=== PATIENT | male | born 1935 | race Caucasian/White ===

== ENCOUNTER 2019-03-11 18:29 | Inpatient (IN) | payer MEDICARE, OTHER ==
[~2019-03-11] VITALS: Ht 175.3 cm; Wt 105.5 kg
[~2019-03-11 18:29] MED LIST: ASPI81TA30 PO; ATOR40TA7 PO; CALC0.253 PO; CALC600T19 PO; CEPH-571 PO; FLUR2.5D3 LEFTEYE; LEVO175T7 PO; LISI40TA4 PO; OFLO5DRO3 LEFTEYE; OMEG1CAP21 PO; PIOG15TA8 PO; PRED5DRO7 LEFTEYE; VARD5TAB5 PO
[2019-03-11 20:21] LABS: BASOPHILS % (AUTO) 0.2 % (0-1); EOSINOPHILS % (AUTO) 0 % (0-6); HEMATOCRIT 33.2 % (42.0-52.0); HEMOGLOBIN 11.2 g/dl (14.0-17.9); LYMPHOCYTES # (AUTO) 13.6 X10'3 (1.1-4.8); MEAN CORPUSCULAR HEMOGLOBIN 32.7 PG (27.0-31.0); MEAN CORPUSCULAR HGB CONC 33.7 g/dL (33.0-36.5); MEAN CORPUSCULAR VOLUME 97.2 FL (78-98); MEAN PLATELET VOLUME 6.7 FL (7.4-10.4); MONOCYTES # (AUTO) 0.4 X10'3 (0-0.9); MONOCYTES % (AUTO) 1.8 % (2-12); NEUTROPHILS # (AUTO) 6.9 X10'3 (1.8-7.7); PLATELET COUNT 229 X10'3 (140-440); RED BLOOD COUNT 3.41 X10'6 (4.70-6.10); WHITE BLOOD COUNT 20.9 X10'3 (4.5-11.0)
[2019-03-11 20:31] LABS: ALANINE AMINOTRANSFERASE 33 U/L (12-78); ALBUMIN 2.5 G/DL (3.4-5.0); ALBUMIN/GLOBULIN RATIO 0.6 (1.1-1.5); ALKALINE PHOSPHATASE 71 IU/L (46-116); ANION GAP 7 (8-16); ASPARTATE AMINO TRANSFERASE 27 U/L (10-37); BILIRUBIN,TOTAL 1.2 MG/DL (0.1-1.0); BLOOD UREA NITROGEN 21 MG/DL (7-18); BUN/CREATININE RATIO 14.9 (5.4-32.0); CALCIUM 6.5 MG/DL (8.5-10.1); CHLORIDE 94 MMOL/L (99-107); CREATININE 1.41 MG/DL (0.60-1.10); GLUCOSE 206 MG/DL (70-104); POTASSIUM 3.2 MMOL/L (3.5-5.1); SODIUM 130 MMOL/L (135-145); TOTAL CARBON DIOXIDE 29.4 MMOL/L (24-32); eGFR 48 ML/MIN
[2019-03-11] MEDS ORDERED: normal saline 1000ML IV soln IV ONE (20:35)
[2019-03-11] MEDS ORDERED: azithromycin/NS 500mg/250ml 250 ML IV ONE (20:35)
[2019-03-11] MEDS ORDERED: CefTRIAXone 2gm/D5W 50ml 50 ML IV ONE (20:35)
[2019-03-11] MEDS ORDERED: ipratropium/albuterol 3ml nebule NEB ONE (20:35)
[2019-03-11 21:03] LABS: TOTAL CELLS COUNTED 100
[2019-03-11 21:04] LABS: PLATELET ESTIMATE NORMAL; SMUDGE CELLS FEW
--- NOTE | 2019-03-11 22:40 | NUR ---
UNABLE TO COMPLETE MED REC. PT DOES NOT RECALL HOME MEDS
[2019-03-11] MEDS ORDERED: potassium Cl 20 mEq SR tablet PO PRN (22:50)
[2019-03-11] MEDS ORDERED: dextrose 50%-water 50ml dispensing syringe IV PRN ×2 (22:50)
[2019-03-11] MEDS ORDERED: mag hydrox/Alum hydrox/simeth 30ml oral suspension PO PRN (22:50)
[2019-03-11] MEDS ORDERED: docusate sod 100mg capsule PO PRN (22:50)
[2019-03-11] MEDS ORDERED: ondansetron/PF 4mg/2ml inj IV PRN (22:50)
[2019-03-11] MEDS ORDERED: acetaminophen 325mg tablet PO PRN (22:50)
[2019-03-11] MEDS ORDERED: ipratropium/albuterol 3ml nebule NEB PRN (22:50)
[2019-03-11] MEDS ORDERED: potassium Cl 40MEQ/NS 500ml 500 ML IV PRN ×2 (22:50)
[2019-03-11] MEDS ORDERED: insulin Lispro (HumaLOG) vial - multi-dose SQ SCH (22:50)
[2019-03-11] MEDS ORDERED: glucagon, human recombinant 1mg kit SUBCUT PRN (22:50)
[2019-03-11] MEDS ORDERED: magnesium Cl slow-release 64mg tablet PO PRN (22:50)
[2019-03-11] MEDS ORDERED: MESSAGE TO PHARMACY PO ONE (22:50)
[2019-03-11] MEDS ORDERED: magnesium 4gm in 100ml NS 100 ML IV PRN (22:50)
[2019-03-11] MEDS ORDERED: magnesium 2GM in 50ml NS 50 ML IV PRN (22:50)
[2019-03-11] MEDS ORDERED: dextrose ORAL solution 15 GM/59 ML bottle PO PRN ×2 (22:50)
--- NOTE | 2019-03-11 23:33 | NUR ---
Patient in room [facility]. I have received report from Eliezer Bradley Rn and had the opportunity to ask questions and will assume patient care upon arrival to the floor. Addendum: 03/11/19 at 2335 by Crystal Reed RN Amended: Links added.
[2019-03-12 00:10] VITALS: BP 130/66
--- NOTE | 2019-03-12 00:42 | NUR ---
pt inc of urine skin care done and picture of calf to left leg. noted bilat edema to legs +1 and scrotal edema. bilat cellulitis to the legs left worse than right and wound to back of left leg calf. scabs to both ears dry and thick cream to ears outer lobes and legs bilat. after picture taken of back of left calf Optifoam applied and cream to legs bilat. right hand 4th finger knuckle with dry scab next to pinky finger.
--- NOTE | 2019-03-12 01:37 | NUR ---
up to edge of bed to void. tolerated well c/o being cold warm blanket given and thermostat up from 65 to 72.
--- NOTE | 2019-03-12 02:48 | NUR ---
pt requested sleeping pill one not ordered and after 1am so unable to give if had it. then pt c/o pain with coughing to his side and medicated with tylenol for this.
--- NOTE | 2019-03-12 03:30 | NUR ---
reviewed med rec with pt and talked to Dr Ramsay regarding him. his meds and what he wanted for pain and sleeper. no sleeper ordered.
--- NOTE | 2019-03-12 05:24 | NUR ---
resting on his side no s&S of distress at this time.
[2019-03-12 05:33] LABS: BASOPHILS % (AUTO) 0.2 % (0-1); EOSINOPHILS % (AUTO) 0.1 % (0-6); MEAN CORPUSCULAR HEMOGLOBIN 32.9 PG (27.0-31.0); MEAN PLATELET VOLUME 6.7 FL (7.4-10.4)
[2019-03-12 05:34] LABS: HEMATOCRIT 33.2 % (42.0-52.0); HEMOGLOBIN 11.2 g/dl (14.0-17.9); LYMPHOCYTES # (AUTO) 14.3 X10'3 (1.1-4.8); LYMPHOCYTES % (AUTO) 62.9 % (21-51); MEAN CORPUSCULAR HGB CONC 33.6 g/dL (33.0-36.5); MEAN CORPUSCULAR VOLUME 97.8 FL (78-98); MONOCYTES # (AUTO) 0.4 X10'3 (0-0.9); MONOCYTES % (AUTO) 1.6 % (2-12); NEUTROPHILS % (AUTO) 35.2 % (42-75); PLATELET COUNT 230 X10'3 (140-440); RED CELL DISTRIBUTION WIDTH 16.3 % (11.5-14.5); WHITE BLOOD COUNT 22.7 X10'3 (4.5-11.0)
[2019-03-12 05:36] LABS: ALANINE AMINOTRANSFERASE 25 U/L (12-78); ALBUMIN 2.1 G/DL (3.4-5.0); ALBUMIN/GLOBULIN RATIO 0.5 (1.1-1.5); ALKALINE PHOSPHATASE 108 IU/L (46-116); ANION GAP 8 (8-16); ASPARTATE AMINO TRANSFERASE 21 U/L (10-37); BILIRUBIN,TOTAL 0.7 MG/DL (0.1-1.0); BLOOD UREA NITROGEN 19 MG/DL (7-18); BUN/CREATININE RATIO 14.5 (5.4-32.0); CALCIUM 6.3 MG/DL (8.5-10.1); CHLORIDE 99 MMOL/L (99-107); CREATININE 1.31 MG/DL (0.60-1.10); GLUCOSE 155 MG/DL (70-104); SODIUM 134 MMOL/L (135-145); TOTAL CARBON DIOXIDE 27.1 MMOL/L (24-32); TOTAL PROTEIN 6.1 G/DL (6.4-8.2); eGFR 52 ML/MIN
[2019-03-12 05:40] LABS: MAGNESIUM 1.9 MG/DL (1.5-2.4)
--- NOTE | 2019-03-12 05:47 | NUR ---
received critical lab k3.[address] Ramsay with results.
[2019-03-12 06:18] LABS: PLATELET ESTIMATE NORMAL; TOTAL CELLS COUNTED 100
[2019-03-12 06:19] LABS: ANISOCYTOSIS 1+; SMUDGE CELLS FEW
--- NOTE | 2019-03-12 06:23 | NUR ---
Dr Ramsay paged x2 regarding critical K results. no call back and no orders inputted. will pass this on to Kiarra allen Rn in report.
--- NOTE | 2019-03-12 06:37 | NUR ---
Problems reprioritized. Patient report given, questions answered & plan of care reviewed with Kiarra Romero. Addendum: 03/12/19 at 0638 by Crystal Reed RN Amended: Links added.
[2019-03-12] MEDS: K and/or MAG REPLACEMENT MC SCH (06:45)
--- NOTE | 2019-03-12 06:48 | NUR ---
Dr. Ramsay aware of K of 3.0. Replacement protocol ordered.
[2019-03-12] MEDS ORDERED: magnesium 4gm in 100ml NS 100 ML IV PRN (06:50)
[2019-03-12] MEDS ORDERED: magnesium 2GM in 50ml NS 50 ML IV PRN (06:50)
[2019-03-12] MEDS ORDERED: magnesium Cl slow-release 64mg tablet PO PRN (06:50)
[2019-03-12] MEDS ORDERED: potassium Cl 40MEQ/NS 500ml 500 ML IV PRN ×2 (06:50)
[2019-03-12] MEDS ORDERED: potassium Cl 20 mEq SR tablet PO PRN ×2 (06:50)
[2019-03-12] MEDS: calcitriol 0.25mcg capsule PO SCH (07:19)
[2019-03-12] MEDS: calcium carbonate 500mg tablet PO SCH ×2 (07:20→20:19)
[2019-03-12] MEDS: atorvastatin 20mg tablet PO SCH (07:22)
[2019-03-12] MEDS: levoTHYROXINE 175mcg tablet PO SCH (07:22)
[2019-03-12] MEDS: aspirin 81mg tablet.DR PO SCH (07:22)
[2019-03-12] MEDS: enoxaparin 40mg/0.4ml syringe SQ SCH (07:23)
[2019-03-12] MEDS: OMEGA-3/DHA/EPA/FISH OIL 1 EACH CAPSULE.DR PO SCH ×2 (07:26→20:19)
[2019-03-12] MEDS ORDERED: lisinopril 20mg tablet PO SCH (08:00)
[2019-03-12] MEDS ORDERED: CefTRIAXone/D5W-Rocephin 1gm 50 ML IV SCH (08:00)
[2019-03-12 09:38] VITALS: BP 102/48
[2019-03-12 11:00] VITALS: BP 99/60
[2019-03-12] MEDS: potassium Cl 20 mEq SR tablet PO PRN ×3 (12:23→21:12)
--- NOTE | 2019-03-12 16:05 | NUR ---
DM Consult:A1C 7.4. Pt admit w/ sepsis secondary to PNA w/ RLL cellulitis. Hx thyroid CA and thyroidectomy, T2DM. Pt PO pending advanced to carb controlled diet. Pt seen by RD for written/verbal high protein/DM eds w/ RD contact information provided. Pt attends [employer] classes. Pt agrees to strawberry [place] yogurt TIDWM; RD d/w dietary. LBM 5/4 w/ initial nausea on admit resolving. Receiving electrolyte replacements per protocol. Will continue to monitor. Rec: 1. continue carb controlled diet 2. strawberry [place] yogurt TIDWM 3. monitor for ONS needs pending PO 4. wt per rx Addendum: 03/12/19 at [address] Amended: Links added.
--- NOTE | 2019-03-12 18:11 | NUR ---
Problems reprioritized. Patient report given, questions answered & plan of care reviewed with Vladimir GUERRA.
[2019-03-12 18:50] VITALS: BP 130/70
[2019-03-12] MEDS: ipratropium/albuterol 3ml nebule NEB SCH ×2 (19:29→23:20)
[2019-03-12] MEDS: lactobacillus rhamnosus 10,000 MMU CELLS/CAPSULE PO SCH (20:19)
[2019-03-12] MEDS: insulin glargine (Lantus) pen - multi-dose SQ SCH (21:00)
[2019-03-12] MEDS: azithromycin/NS 500mg/250ml 250 ML IV SCH (21:10)
[2019-03-13] VITALS: BP 131/76
[2019-03-13] MEDS: ipratropium/albuterol 3ml nebule NEB SCH ×6 (03:20→23:13)
[2019-03-13 05:17] LABS: EOSINOPHILS # (AUTO) 0.3 X10'3 (0-0.9); HEMOGLOBIN 10.4 g/dl (14.0-17.9); MEAN CORPUSCULAR VOLUME 98.5 FL (78-98); MONOCYTES # (AUTO) 0.2 X10'3 (0-0.9); WHITE BLOOD COUNT 20.8 X10'3 (4.5-11.0)
[2019-03-13 05:19] LABS: BASOPHILS % (AUTO) 0.2 % (0-1); EOSINOPHILS % (AUTO) 1.3 % (0-6); HEMATOCRIT 31.4 % (42.0-52.0); LYMPHOCYTES # (AUTO) 14.7 X10'3 (1.1-4.8); LYMPHOCYTES % (AUTO) 71.1 % (21-51); MEAN CORPUSCULAR HEMOGLOBIN 32.8 PG (27.0-31.0); MEAN CORPUSCULAR HGB CONC 33.3 g/dL (33.0-36.5); MEAN PLATELET VOLUME 6.8 FL (7.4-10.4); MONOCYTES % (AUTO) 1.1 % (2-12); NEUTROPHILS # (AUTO) 5.5 X10'3 (1.8-7.7); NEUTROPHILS % (AUTO) 26.3 % (42-75); PLATELET COUNT 246 X10'3 (140-440); RED BLOOD COUNT 3.18 X10'6 (4.70-6.10); RED CELL DISTRIBUTION WIDTH 16.7 % (11.5-14.5)
[2019-03-13 05:45] LABS: ALBUMIN 2.2 G/DL (3.4-5.0); ANION GAP 7 (8-16); BLOOD UREA NITROGEN 24 MG/DL (7-18); BUN/CREATININE RATIO 17.1 (5.4-32.0); CALCIUM 6.5 MG/DL (8.5-10.1); CHLORIDE 100 MMOL/L (99-107); GLUCOSE 98 MG/DL (70-104); MAGNESIUM 2.1 MG/DL (1.5-2.4); POTASSIUM 4.1 MMOL/L (3.5-5.1); SODIUM 135 MMOL/L (135-145); eGFR 49 ML/MIN
--- NOTE | 2019-03-13 06:12 | NUR ---
I have received report from Vladimir GUERRA and had the opportunity to ask questions and assume patient care.
--- NOTE | 2019-03-13 06:37 | NUR ---
Problems reprioritized. Patient report given, questions answered & plan of care reviewed with TYRELL. Addendum: 03/13/19 at 0638 by Venancio Alcaraz RN Amended: Links added.
[2019-03-13 07:11] LABS: TOTAL CELLS COUNTED 100
[2019-03-13 07:12] LABS: ANISOCYTOSIS 1+; PLATELET ESTIMATE NORMAL; SMUDGE CELLS 2+
[2019-03-13 07:30] VITALS: BP 132/68
[2019-03-13] MEDS: K and/or MAG REPLACEMENT MC SCH (08:00)
[2019-03-13] MEDS: atorvastatin 20mg tablet PO SCH (08:07)
[2019-03-13] MEDS: calcitriol 0.25mcg capsule PO SCH (08:07)
[2019-03-13] MEDS: CefTRIAXone 2gm/D5W 50ml 50 ML IV SCH (08:07)
[2019-03-13] MEDS: lactobacillus rhamnosus 10,000 MMU CELLS/CAPSULE PO SCH ×2 (08:08→20:02)
[2019-03-13] MEDS: levoTHYROXINE 175mcg tablet PO SCH (08:08)
[2019-03-13] MEDS: OMEGA-3/DHA/EPA/FISH OIL 1 EACH CAPSULE.DR PO SCH ×2 (08:08→20:02)
[2019-03-13] MEDS: enoxaparin 40mg/0.4ml syringe SQ SCH (08:08)
[2019-03-13] MEDS: calcium carbonate 500mg tablet PO SCH ×2 (08:08→20:02)
[2019-03-13] MEDS: aspirin 81mg tablet.DR PO SCH (08:08)
[2019-03-13 11:00] VITALS: BP 133/82
--- NOTE | 2019-03-13 11:50 | NUR ---
O2 Sat at rest on room air:__92_% If below 89%: Recovery O2 Sat at rest on ___LPM:___%:___% via (mask/nasal cannula, etc..) No further documentation is necessary. If O2 Sat did not drop below 89% on room air,ambulate patient on room air. O2 Sat while ambulating on room air:___% Recovery O2 Sat while ambulating on ___LPM:___% No further documentation is necessary. If patient does not drop below 89% while ambulating, he/she does not qualify for home O2.
[2019-03-13] MEDS: furosemide 20 MG/2 ML vial IV SCH ×2 (14:28→20:02)
--- NOTE | 2019-03-13 16:05 | NUR ---
Student documentation: I have reviewed and agree with all interventions, assessments performed and documented by Roma WANG from [facility]. Student Medication Administration: For medication-pass' this shift, all medication were reviewed, dispensed, administered and documented per hospital policy by Roma WANG from [facility].
--- NOTE | 2019-03-13 18:23 | NUR ---
Problems reprioritized. Patient report given, questions answered & plan of care reviewed with Latanya GUERRA.
[2019-03-13 20:00] VITALS: BP 142/82
[2019-03-13] MEDS: azithromycin/NS 500mg/250ml 250 ML IV SCH (20:02)
[2019-03-13] MEDS: insulin glargine (Lantus) pen - multi-dose SQ SCH (21:00)
--- NOTE | 2019-03-13 21:18 | NUR ---
Patient in room [facility]. I have received report from AMRI Plunkett and had the opportunity to ask questions and assume patient care. Addendum: 03/13/19 at 2120 by Latanya Singh RN Amended: Links added.
[2019-03-14 00:11] VITALS: BP 142/76
[2019-03-14] MEDS: HYDROcodone/acetaminophen 5mg/325mg tablet PO PRN ×2 (02:06→09:58)
[2019-03-14] MEDS: ipratropium/albuterol 3ml nebule NEB SCH ×3 (03:24→10:58)
[2019-03-14 05:17] LABS: EOSINOPHILS # (AUTO) 0.3 X10'3 (0-0.9); EOSINOPHILS % (AUTO) 1.6 % (0-6); HEMOGLOBIN 11.1 g/dl (14.0-17.9); MONOCYTES # (AUTO) 0.2 X10'3 (0-0.9)
[2019-03-14 05:20] LABS: BASOPHILS % (AUTO) 0.2 % (0-1); HEMATOCRIT 32.3 % (42.0-52.0); LYMPHOCYTES # (AUTO) 12.5 X10'3 (1.1-4.8); LYMPHOCYTES % (AUTO) 73.4 % (21-51); MEAN CORPUSCULAR HEMOGLOBIN 33.6 PG (27.0-31.0); MEAN CORPUSCULAR HGB CONC 34.3 g/dL (33.0-36.5); MEAN CORPUSCULAR VOLUME 97.9 FL (78-98); MEAN PLATELET VOLUME 6.9 FL (7.4-10.4); MONOCYTES % (AUTO) 0.9 % (2-12); NEUTROPHILS # (AUTO) 4.1 X10'3 (1.8-7.7); NEUTROPHILS % (AUTO) 23.9 % (42-75); PLATELET COUNT 310 X10'3 (140-440); RED BLOOD COUNT 3.29 X10'6 (4.70-6.10); RED CELL DISTRIBUTION WIDTH 16.4 % (11.5-14.5)
[2019-03-14 05:22] LABS: ALBUMIN 2.4 G/DL (3.4-5.0); ANION GAP 9 (8-16); BLOOD UREA NITROGEN 32 MG/DL (7-18); BUN/CREATININE RATIO 21.1 (5.4-32.0); CALCIUM 6.7 MG/DL (8.5-10.1); CHLORIDE 99 MMOL/L (99-107); CREATININE 1.52 MG/DL (0.60-1.10); GLUCOSE 143 MG/DL (70-104); MAGNESIUM 1.8 MG/DL (1.5-2.4); POTASSIUM 3.4 MMOL/L (3.5-5.1); SODIUM 137 MMOL/L (135-145); TOTAL CARBON DIOXIDE 29.3 MMOL/L (24-32); eGFR 44 ML/MIN
--- NOTE | 2019-03-14 06:00 | NUR ---
Patient in room [facility]. I have received report from Latanya GUERRA and had the opportunity to ask questions and assume patient care.
--- NOTE | 2019-03-14 06:07 | NUR ---
Problems reprioritized. Patient report given, questions answered & plan of care reviewed with MARI Plunkett. Addendum: 03/14/19 at 0607 by Latanya Singh RN Amended: Links added.
[2019-03-14] MEDS: furosemide 20 MG/2 ML vial IV SCH (07:47)
[2019-03-14] MEDS: atorvastatin 20mg tablet PO SCH (07:47)
[2019-03-14] MEDS: CefTRIAXone 2gm/D5W 50ml 50 ML IV SCH (07:47)
[2019-03-14] MEDS: lactobacillus rhamnosus 10,000 MMU CELLS/CAPSULE PO SCH (07:48)
[2019-03-14] MEDS: levoTHYROXINE 175mcg tablet PO SCH (07:48)
[2019-03-14] MEDS: aspirin 81mg tablet.DR PO SCH (07:48)
[2019-03-14] MEDS: calcium carbonate 500mg tablet PO SCH (07:48)
[2019-03-14] MEDS: calcitriol 0.25mcg capsule PO SCH (07:52)
[2019-03-14] MEDS: enoxaparin 40mg/0.4ml syringe SQ SCH (07:52)
[2019-03-14] MEDS: OMEGA-3/DHA/EPA/FISH OIL 1 EACH CAPSULE.DR PO SCH (07:52)
[2019-03-14 07:54] LABS: ANISOCYTOSIS 1+; PLATELET ESTIMATE NORMAL; SMUDGE CELLS 2+; TOTAL CELLS COUNTED 100
[2019-03-14 08:00] VITALS: BP 162/90
[2019-03-14] MEDS: K and/or MAG REPLACEMENT MC SCH (08:00)
[2019-03-14] MEDS: potassium Cl 20 mEq SR tablet PO PRN (09:57)
--- NOTE | 2019-03-14 11:20 | NUR ---
Paged Dr. Valdovinos concerning patient wanting to leave, get his money [place] and wallet, out of the safe. He is obsessed about his personal items in the safe, thinks they are going to get stolen. Security has informed him that they are safe and under lock and rothman. Dr. Valdovinos will come see patient as soon as he is available. Patient has been educated that if he leaves AMA he will most likely be responsible for the bill, patient states that he will wait for the MD to see him. Advised patient that he can not cuss at the staff and threaten any of them. He states that he is sorry and that he will be good. Patient is in the room sitting in the chair drinking coffee.
--- NOTE | 2019-03-14 11:57 | NUR ---
in to see patient.
[2019-03-14 12:30] VITALS: BP 173/98
--- NOTE | 2019-03-14 12:33 | NUR ---
Discharge order place, MD working on dictation and wanting results for echo on patient before discharging. [facility] bedside waiting for MD to put in medications to go home with. MD has not completed discharge of of yet. Will continue to watch for completion of discharge.
--- NOTE | 2019-03-14 12:58 | NUR ---
Confirmed with Dr. Valdovinos that he is still working on patients discharge currently, stated "Yes".
[2019-03-14] MEDS ORDERED: FURO-150 PO (13:07)
[2019-03-14] MEDS ORDERED: CEFD300C3 PO (13:07)
--- NOTE | 2019-03-14 14:29 | NUR ---
Patient discharged on nursing end. Patient waiting for son to pick him up in 20 minutes. Medications called into pharmacy. All medication education completed with patient. Patient states that he knows all the information he needs to know about DM. Patient attends meeting at [facility] for his DM. Patient states, "If I dont take care of these feet I will lose them." Patient is dressed and sitting in chair ready to discharge. IV dc'd.
--- NOTE | 2019-03-14 14:45 | NUR ---
Patient left after being told to wait in his room for his son, without a wheel chair ride. Patient left belongings bag, took discharge paper work.
[2019-03-15] MEDS ORDERED: POTA20TA19 PO (14:56)
[2019-03-15] MEDS ORDERED: SYN0.088T PO (14:57)
[2019-03-15] MEDS ORDERED: LEVO100T PO (14:59)
== END 2019-03-14 14:53 | disposition home or self-care (01) | DRG 871 ==
LOC: ER 18:31 → SUR 3N 22:48 → CMPBEDREQ 23:40
PROVIDERS: ADMIT Family Medicine; ATTEND Hospitalist
DX: A41.9 Sepsis, unspecified organism (principal); J18.9 Pneumonia, unspecified organism; N17.9 Acute kidney failure, unspecified; L03.116 Cellulitis of left lower limb; I10 Essential (primary) hypertension; E78.00 Pure hypercholesterolemia, unspecified; E11.649 Type 2 diabetes mellitus with hypoglycemia without coma; E89.0 Postprocedural hypothyroidism; G47.00 Insomnia, unspecified; Z85.850 Personal history of malignant neoplasm of thyroid
CPT/HCPCS: 36415; 71045; 80048; 80053; 82948; 83036; 83605; 83735; 83880; 84145; 84484; 85025; 87040; 87070; 87502; 87503; 93005; 93306; 93970; 94640; 94760; 96365; 96368; 99285; G0378; J0456; J0696; J1650; J1815; J1940

== ENCOUNTER 2019-06-30 15:44 | Emergency (ER) | payer MEDICARE, OTHER ==
[~2019-06-30] VITALS: Ht 175.3 cm; Wt 118.9 kg
[~2019-06-30 15:44] MED LIST changes: -CEPH-571 PO; -FLUR2.5D3 LEFTEYE; +FURO-150 PO; +LEVO100T PO; -LEVO175T7 PO; -LISI40TA4 PO; -OFLO5DRO3 LEFTEYE; +POTA20TA19 PO; -PRED5DRO7 LEFTEYE
[2019-06-30 17:34] VITALS: BP 127/68
[2019-06-30 18:07] LABS: CLARITY,URINE CLEAR (Clear); COLOR,URINE YELLOW (Yellow); GLUCOSE, URINE NEGATIVE (Neg); KETONES,URINE NEGATIVE (Neg); LEUKOCYTE ESTERASE ,URINE NEGATIVE (Neg); NITRITES, URINE NEGATIVE (Neg); OCCULT BLOOD,URINE SMALL (Neg); PROTEIN,URINE NEGATIVE (Neg); UROBILINOGEN,URINE 0.2 E.U/dL (0.2-1.0)
[2019-06-30 18:08] LABS: UA COLLECTION TYPE VOIDED
[2019-06-30 18:10] LABS: HEMOGLOBIN 10.9 g/dl (14.0-17.9); MEAN PLATELET VOLUME 6.5 FL (7.4-10.4)
[2019-06-30 18:12] LABS: BASOPHILS % (AUTO) 0.2 % (0-1); EOSINOPHILS # (AUTO) 0.3 X10'3 (0-0.9); EOSINOPHILS % (AUTO) 1.9 % (0-6); HEMATOCRIT 31.6 % (42.0-52.0); LYMPHOCYTES # (AUTO) 11.6 X10'3 (1.1-4.8); LYMPHOCYTES % (AUTO) 81.6 % (21-51); MEAN CORPUSCULAR HEMOGLOBIN 35.2 PG (27.0-31.0); MEAN CORPUSCULAR HGB CONC 34.5 g/dL (33.0-36.5); MONOCYTES # (AUTO) 0.4 X10'3 (0-0.9); NEUTROPHILS # (AUTO) 1.9 X10'3 (1.8-7.7); NEUTROPHILS % (AUTO) 13.3 % (42-75); PLATELET COUNT 264 X10'3 (140-440); RED CELL DISTRIBUTION WIDTH 16.3 % (11.5-14.5); WHITE BLOOD COUNT 14.2 X10'3 (4.5-11.0)
[2019-06-30] MEDS ORDERED: DOXYCYCLINE 100MG CAPSULE PO STA (18:13)
[2019-06-30 18:16] LABS: BACTERIA,URINE NONE SEEN /HPF (Neg); RBC,URINE 0-2 /HPF (0-2); SQUAMOUS EPITHELIAL CELL,UR FEW /LPF (FEW); WBC,URINE NONE SEEN /HPF (0-4)
[2019-06-30 18:17] LABS: MUCUS STRANDS NONE SEEN /LPF (Neg)
[2019-06-30] MEDS ORDERED: DOXY100C43 PO (18:23)
[2019-06-30 18:27] LABS: ALANINE AMINOTRANSFERASE 23 U/L (12-78); ALBUMIN 3.2 G/DL (3.4-5.0); ALBUMIN/GLOBULIN RATIO 0.7 (1.1-1.5); ALKALINE PHOSPHATASE 76 IU/L (46-116); ANION GAP 7 (8-16); ASPARTATE AMINO TRANSFERASE 16 U/L (10-37); BILIRUBIN,TOTAL 0.4 MG/DL (0.1-1.0); BLOOD UREA NITROGEN 25 MG/DL (7-18); BUN/CREATININE RATIO 15.9 (5.4-32.0); CALCIUM 7.8 MG/DL (8.5-10.1); CHLORIDE 99 MMOL/L (99-107); CREATININE 1.57 MG/DL (0.60-1.10); GLUCOSE 112 MG/DL (70-104); POTASSIUM 3.4 MMOL/L (3.5-5.1); SODIUM 137 MMOL/L (135-145); TOTAL CARBON DIOXIDE 30.6 MMOL/L (24-32); TOTAL PROTEIN 7.6 G/DL (6.4-8.2); eGFR 42 ML/MIN
[2019-06-30 18:47] LABS: TOTAL CELLS COUNTED 100
[2019-06-30 18:48] LABS: ANISOCYTOSIS 1+; PLATELET ESTIMATE NORMAL
[2019-06-30 18:49] LABS: SMUDGE CELLS 2+
== END 2019-06-30 18:42 | disposition home or self-care (01) ==
LOC: ER 15:45
DX: L03.116 Cellulitis of left lower limb (principal); L03.115 Cellulitis of right lower limb; I87.8 Other specified disorders of veins; E78.00 Pure hypercholesterolemia, unspecified; I10 Essential (primary) hypertension; E11.9 Type 2 diabetes mellitus without complications; E07.9 Disorder of thyroid, unspecified; Z79.82 Long term (current) use of aspirin; Z79.899 Other long term (current) drug therapy
CPT/HCPCS: 36415; 80053; 81001; 83735; 84145; 85025; 85610; 99283

== ENCOUNTER 2021-04-23 17:24 | Emergency (ER) | payer MEDICARE, OTHER ==
[~2021-04-23] VITALS: Ht 175.3 cm; Wt 131.0 kg
[~2021-04-23 17:24] MED LIST changes: -ATOR40TA7 PO; +BUME0.5T6 PO; -CALC0.253 PO; -CALC600T19 PO; +CYAN-51 PO; -FURO-150 PO; +HYDR-3972 PO; +IBUP-1985 PO; -LEVO100T PO; +LEVO200T8 PO; -OMEG1CAP21 PO; +PIOG15TA67 PO; -PIOG15TA8 PO; +POTA-82 PO; -POTA20TA19 PO; -VARD5TAB5 PO
[2021-04-23 19:20] LABS: EOSINOPHILS # (AUTO) 0.4 X10'3 (0-0.9); RED BLOOD COUNT 2.75 X10'6 (4.70-6.10); WHITE BLOOD COUNT 18.6 X10'3 (4.5-11.0)
[2021-04-23] MEDS ORDERED: HYDROcodone/acetaminophen 10/325mg tab PO ONE (19:20)
[2021-04-23 19:22] LABS: BASOPHILS % (AUTO) 0.2 % (0-1); EOSINOPHILS % (AUTO) 2.3 % (0-6); HEMATOCRIT 27.5 % (42.0-52.0); LYMPHOCYTES # (AUTO) 14.6 X10'3 (1.1-4.8); LYMPHOCYTES % (AUTO) 78.4 % (21-51); MEAN CORPUSCULAR HEMOGLOBIN 32.7 PG (27.0-31.0); MEAN CORPUSCULAR HGB CONC 32.7 g/dL (33.0-36.5); MEAN PLATELET VOLUME 6.4 FL (7.4-10.4); MONOCYTES # (AUTO) 0.2 X10'3 (0-0.9); MONOCYTES % (AUTO) 0.9 % (2-12); NEUTROPHILS # (AUTO) 3.4 X10'3 (1.8-7.7); NEUTROPHILS % (AUTO) 18.2 % (42-75); PLATELET COUNT 181 X10'3 (140-440); RED CELL DISTRIBUTION WIDTH 22.2 % (11.5-14.5)
[2021-04-23 19:36] LABS: ALANINE AMINOTRANSFERASE 10 U/L (12-78); ALBUMIN 2.3 G/DL (3.4-5.0); ALBUMIN/GLOBULIN RATIO 0.4 (1.1-1.5); ALKALINE PHOSPHATASE 74 IU/L (46-116); ANION GAP 7 (8-16); ASPARTATE AMINO TRANSFERASE 14 U/L (10-37); BILIRUBIN,TOTAL 0.3 MG/DL (0.1-1.0); BLOOD UREA NITROGEN 22 MG/DL (7-18); BUN/CREATININE RATIO 18.2 (5.4-32.0); CALCIUM 6.6 MG/DL (8.5-10.1); CHLORIDE 98 MMOL/L (99-107); CREATININE 1.21 MG/DL (0.60-1.10); GLUCOSE 120 MG/DL (70-104); MAGNESIUM 2.2 MG/DL (1.5-2.4); POTASSIUM 4.9 MMOL/L (3.5-5.1); SODIUM 135 MMOL/L (135-145); TOTAL PROTEIN 7.5 G/DL (6.4-8.2); eGFR 57 ML/MIN
[2021-04-23 20:43] LABS: COLOR,URINE RED (Yellow)
[2021-04-23 20:53] LABS: CLARITY,URINE BLOODY (Clear); UA COLLECTION TYPE NON-SPECIFIED
[2021-04-23 20:56] LABS: RBC,URINE TNTC /HPF (0-2)
[2021-04-23 20:57] LABS: BACTERIA,URINE FEW /HPF (Neg)
[2021-04-23 20:58] LABS: COARSE GRANULAR CAST 0-3 /LPF (NEGATIVE); SQUAMOUS EPITHELIAL CELL,UR NONE SEEN /LPF (FEW)
[2021-04-23 22:06] LABS: ANISOCYTOSIS 3+; PLATELET ESTIMATE NORMAL; TOTAL CELLS COUNTED 100
[2021-04-23 22:07] LABS: LARGE PLATELETS FEW
[2021-04-23 22:08] LABS: POLYCHROMASIA 1+; STOMATOCYTES 1+
[2021-04-23 22:10] LABS: SMUDGE CELLS 3+
[2021-04-24] MEDS ORDERED: ibuprofen 200mg tablet PO ONE (00:25)
[2021-04-24 03:08] VITALS: BP 106/58
== END 2021-04-24 03:10 ==
LOC: ER 17:24
DX: T83.098A Other mechanical complication of other urinary catheter, initial encounter (principal); R50.9 Fever, unspecified; E78.00 Pure hypercholesterolemia, unspecified; I10 Essential (primary) hypertension; E11.9 Type 2 diabetes mellitus without complications; Z98.890 Other specified postprocedural states; Z79.82 Long term (current) use of aspirin; Z79.899 Other long term (current) drug therapy; Y84.6 Urinary catheterization as the cause of abnormal reaction of the patient, or of later complication, without mention of misadventure at the time of the procedure
CPT/HCPCS: 36415; 51700; 80053; 81001; 83735; 84145; 85007; 85025; 87040; 87088; 93005; 99284